=== PATIENT | female | born 1995 | race Caucasian/White ===

== ENCOUNTER 2019-11-19 11:43 | Emergency (ER) | payer SELFPAY ==
[~2019-11-19] VITALS: Ht 165.1 cm; Wt 86.2 kg
[~2019-11-19 11:43] MED LIST: PHENERGAN; PRENATAL ONE T1 EACH PO
--- OUTSIDE RECORDS SUMMARY | 2019-11-19 11:46 | XMS REPORT | Clinical Summary ---
Author Author [facility] Organization [facility] Address Unknown Phone Unavailable Care Team Providers Care Jailer Name Role Phone Asked, No Pcp PCP Unavailable Allergies Comments Active Allergy Reactions Severity Noted Date Diphenhydramine Hcl Unknown 05/22/2019 Reaction unknown Cephalexin Other (See 03/18/2017 Comments) Hydrocodone-Acetaminophen Itching Medium 02/2018 Medications End Date Status Medication Sig Dispensed Refills Start Date Active traMADol-acetaminophen Take 1 tablet 0 (ULTRACET) 37.5-325 mg by mouth per tabletIndications: every 6 (six) acute pain hours as needed for moderate pain .Acute Pain. Active ibuprofen (ADVIL) 600 MG Take 600 mg 0 tablet by mouth every 6 (six) hours as needed for mild pain. Active naproxen-esomeprazole Take 1 60 tablet 2 04/28 (VIMOVO) 500-20 mg capsule by 9 tablet,IR & delay mouth 2 (two) rel,biphasic times a day. Active Problems Not on file Encounters Care Team Description Date Type Specialty Duarte Beatty MD Acute pain of left knee (Primary Dx); Complex tear of lateral meniscus of left knee as current injury, initial encounter; Sprain of medial collateral ligament of left knee, initial encounter 05/22/2019 Office Visit Orthopedic Surgery Franklin Small DO Nonintractable headache, unspecified chr onicity pattern, unspecified headache type (Primary Dx) 05/04/2019 Emergency Emergency Medicine Kehinde Gregg MD Rectal bleeding (Primary Dx) 03/05/2019 Emergency Emergency Medicine after 11/18/2018 Social History Date Tobacco Use Types Packs/Day Years Used Light Tobacco Smoker Cigarettes 0.25 1 Smokeless Tobacco: Never Used Drinks/Week oz/Week Comments Alcohol Use No Sex Assigned at Date Recorded Not on file Industry Job Start Date Occupation Not on file Not on file Not on file Travel End Travel History Travel Start No recent travel history available. Last Filed Vital Signs Reading Time Taken Comments Vital Sign 124/78 05/04/2019 5:35 PM [employer] Blood Pressure 90 05/04/2019 5:35 PM [employer]CH[employer] Pulse 36.3 C (97.3 F) 05/04/2019 5:35 PM [employer]OT[employer]INE [employer]CH[employer] Temperature 22 05/04/2019 5:35 PM [employer]INE [employer]CH[employer] Respiratory Rate 98% 05/04/2019 5:35 PM [employer]OTING [employer]ACHINE [employer]CH[employer] Oxygen Saturation - - Inhaled Oxygen Concentration 86.2 kg (190 lb) 05/22/2019 9:24 AM [employer]OTING MACHINE [employer]CH[employer] Weight 165.1 cm (5' 5") 05/22/2019 9:24 AM [employer]OTING MACHINE MECHAN[employer] Height 31.62 05/22/2019 9:24 AM [employer]OT[employer]CH[employer] Body Mass Index Plan of Treatment Health Maintenance Due Date Last Done Comments CERVICAL CANCER SCREENING 2014 INFLUENZA VACCINE 01/26/2020 Procedures Comments Procedure Name Priority Date/Time Associated Diag nosis XR KNEE 4+ VW LEFT Routine 05/22/2019 Acute pain of left knee 9:29 [address] [address] [address] [address] CERVICAL SPINE WO STAT 05/04/2019 CONTRAST 8:40 [address] [employer] [address] HEAD WO CONTRAST STAT 05/04/2019 8:40 PM [employer]OTING MACHINE MECH[employer]IC ESTIMATED GFR STAT 05/04/2019 7:50 PM [employer]OTING MACHINE [employer]CH[employer]IC HCG QUANTITATIVE, SERUM STAT 05/04/2019 7:50 PM [employer]OTING [employer]ACHINE MECH[employer]IC COMPREHENSIVE METABOLIC STAT 05/04/2019 PANEL 7:50 PM [employer]OTING MACHINE MECH[employer]IC PARTIAL THROMBOPLASTIN STAT 05/04/2019 TIME (PTT) 7:50 PM [employer]OTING MACHINE MECHANIC PROTHROMBIN TIME WITH INR STAT 05/04/2019 7:50 PM VOTING MACHINE MECHANIC HC COMPLETE BLD COUNT STAT 05/04/2019 W/AUTO DIFF 7:50 PM VOTING MACHINE MECHANIC ED REFERRAL TO [facility] Routine 03/05/2019 [facility] PHYSICIAN 10:53 PM CDT ORGANIZATION PARATHYROID HORMONE STAT 03/05/2019 10:11 PM CDT ESTIMATED GFR STAT 03/05/2019 10:11 PM CDT COMPREHENSIVE METABOLIC STAT 03/05/2019 PANEL 10:11 PM CDT MAGNESIUM LEVEL STAT 03/05/2019 10:11 PM CDT IONIZED CALCIUM STAT 03/05/2019 10:11 PM CDT ESTIMATED GFR Routine 03/05/2019 5:43 PM CDT COMPREHENSIVE METABOLIC Routine 03/05/2019 PANEL 5:43 PM CDT HC COMPLETE BLD COUNT Routine 03/05/2019 W/AUTO DIFF 5:43 PM CDT after 11/18/2018 Results * XR Knee 4+ Vw Left (05/22/2019 9:29 AM VOTING MACHINE MECHANIC) Specimen Narrative Performed At [facility] X-rays series in all 4 views shows sati sfactory preservation of the joint surface without significant arthritis. There does not appear to be any involvement of tracking and/or meniscus deterioration causing extensive degenerative changes. Sagittal views show a likewise preservation of joint surfaces aeration in the joint galloway rface height nor any osteophytic buildup posteriorly. Finally the merc hant view shows centering at less than 10 degrees axis without any hypert rophic buildup of the lateral facet region. Performing Organization Address City/State/[facility] Ph one Number [facility] [address] [place] [address] * CT Cervical Spine Wo Contrast (05/04/2019 8:40 PM VOTING MACHINE MECHANIC) Specimen Narrative Performed At EXAM: CT CERVICAL SPINE WO CONTRAST [facility] CLINICAL HISTORY: vertebral tenderness TECHNIQUE: Noncontrast enhanced imaging through the cervical spine was performed with coronal and sagittal reconstructed images. CT scans are performed using radiation dose reduction techniques (iterative reconstruction and/or automated exposur e control). Technical factors are evaluated and adjusted to ensure approp riate moderation of exposure. Automated dose management technology is applied to adjust radiation exposure while achieving a diagnostic quality image. COMPARISON: None FINDINGS: Straightening of cervical lordotic curv ature secondary to patient positioning. Cervical alignment and vertebral body h eight are within normal limits. There is no evidence of acute fracture, suspicio us osteolytic lesion, or suspicious osteoblastic lesion. Evaluation of the disc levels is as fol lows: C2-C3: No significant thecal sac or for aminal stenosis. C3-C4: No significant thecal sac or for aminal stenosis. C4-C5: No significant thecal sac or for aminal stenosis. C5-C6: No significant thecal sac or for aminal stenosis. C6-C7: No significant thecal sac or for aminal stenosis. C7-T1: No significant thecal sac or for aminal stenosis. Visualized paraspinal soft tissues are unremarkable. No incidental thyroid nodules are noted . Visualized lung apices are without evid ence of acute focal pneumonia or concerning nodule. IMPRESSION: 1.No acute osseous abnormality of the c ervical spine. [facility]-[id number] Procedure Note Hm Interface, Radiology Results Incoming - 05/04/2019 8:49 PM VOTING MACHINE MECHANIC EXAM: CT CERVICAL SPINE WO CONTRAST CLINICAL HISTORY: vertebral tenderness TECHNIQUE: Noncontrast enhanced imaging through the cervical spine was performed with coronal and sagittal reconstructed images. CT scans are performed using radiation dose reduction techniques (iterative reconstruction and/or automated exposure control). Technical factors are evaluated and adjusted to ensure appropriate moderation of exposure. Automated dose management technology is applied to adjust radiation exposure while achieving a diagnostic quality image. COMPARISON: None FINDINGS: Straightening of cervical lordotic curvature secondary to patient positioning. Cervical alignment and vertebral body height are within normal limits. There is no evidence of acute fracture, suspicious osteolytic lesion, or suspicious osteoblastic lesion. Evaluation of the disc levels is as follows: C2-C3: No significant thecal sac or foraminal stenosis. C3-C4: No significant thecal sac or foraminal stenosis. C4-C5: No significant thecal sac or foraminal stenosis. C5-C6: No significant thecal sac or foraminal stenosis. C6-C7: No significant thecal sac or foraminal stenosis. C7-T1: No significant thecal sac or foraminal stenosis. Visualized paraspinal soft tissues are unremarkable. No incidental thyroid nodules are noted. Visualized lung apices are without evidence of acute focal pneumonia or concerning nodule. IMPRESSION: 1.No acute osseous abnormality of the ce rvical spine. [facility]-[id number] Performing Organization Address City/State/Zipcode Ph one Number [facility] [address] [place] [address] * CT Head Wo Contrast (05/04/2019 8:40 PM VOTING MACHINE MECHANIC) Specimen Narrative Performed At EXAMINATION: CT HEAD WO CONTRAST [facility] CLINICAL HISTORY: occipital headache COMPARISON: CT head 07/28/2015. TECHNIQUE: Noncontrast head CT performe d using radiation dose reduction techniques. Technical factors are andrzej luated and adjusted to ensure appropriate moderation of exposure. Automated dos e management technology is applied to adjust radiation exposure while achieving a diagnostic quality im age. FINDINGS: No significant interval change appearin g since the prior CT from 2015. No acute intra or extra-axial hemorrhage identif ied. The laguna-white matter differentiation is preserved. The basal ganglia, thalami, midbrain, varun and cervicomedullary junction are unremarkable. No mass, mass effect, or midline shift is seen. Ventricles and sulci are normal in appearance for mar ent's age. Basal cisterns are patent. Calvarium is intact. The orbital contents are symmetric and normal in appearance. The visualized paranasal sinuses are unremarkable. The mastoid air cells and middle ear cavities are clear. Scalp soft tissues are unremarkable. IMPRESSION: No acute intracranial abnormality ident ified. [facility]-[id number] Procedure Note Interface, Radiology Results Incoming - 05/04/2019 8:49 PM VOTING MACHINE MECHANIC EXAMINATION: CT HEAD WO CONTRAST CLINICAL HISTORY: occipital headache COMPARISON: CT head 07/28/2015. TECHNIQUE: Noncontrast head CT performed using radiation dose reduction techniques. Technical factors are evaluated and adjusted to ensure appropriate moderation of exposure. Automated dose management technology is applied to adjust radiation exposure while achieving a diagnostic quality image. FINDINGS: No significant interval change appearing since the prior CT from 2015. No acute intra or extra-axial hemorrhage identified. The laguna-white matter differentiation is preserved. The basal ganglia, thalami, midbrain, varun and cervicomedullary junction are unremarkable. No mass, mass effect, or midline shift is seen. Ventricles and sulci are normal in appearance for patient's age. Basal cisterns are patent. Calvarium is intact. The orbital contents are symmetric and normal in appearance. The visualized paranasal sinuses are unremarkable. The mastoid air cells and middle ear cavities are clear. Scalp soft tissues are unremarkable. IMPRESSION: No acute intracranial abnormality identified. [facility]-[id number] Performing Organization Address City/State/Zipcode Ph one Number [facility] [address] [place] [address] * Estimated GFR (05/04/2019 7:50 PM VOTING MACHINE MECHANIC) Only the most recent of 3 results within the time period is included. Pathologist [facility] Estimated GFR >=90 mL/min/1.73 m2 [facility] Comment: YARSANI Catergory Units [facility]OSPITAL G1 >=90 Normal or high G2 60-89 Mildly decreased G3a 45-59 Mildly to moderately decreased G3b 30-44 Moderately to severely decreased G4 15-29 Severely decreased G5 <15 Kidney failure The eGFR was calculated using the Chronic Kidney Disease Epidemiology Collaboration (CKD-EPI) equation. Interpretation is based on recommendations of the National Kidney Foundation-Kidney Disease Outcomes Quality Initiative (NKF-KDOQI) published in 2014. Specimen Plasma specimen Performing Organization Address City/[facility] Ph one Number [facility] [place] [address] [place] [address] PATHOLOGY AND GENOMIC MEDICINE [address] * Partial thromboplastin time, activated (05/04/2019 7:50 PM VOTING MACHINE MECHANIC) Pathologist [facility] PTT 28.7 23.0 - 36.0 sec [facility] Comment: [facility] PTT therapeutic range for [place] unfractionated heparin is HOSPITAL 61.0-112.0 seconds which corresponds to Anti-Xa 0.3-0.7 U/ml. Specimen Blood Performing Organization Address [facility] Ph one Number [facility] [place] DE[place] OF [address] [place] [address] PATHOLOGY AND [facility] [address] [place] [address] * Prothrombin time with INR (05/04/2019 7:50 PM VOTING MACHINE MECHANIC) Pathologist [facility] Prothrombin 12.4 11.5 - 14.5 sec [facility] time [facility] INR 0.95 [facility] Comment: YARSANI For patients on anticoagulant [place] therapy, reference ranges HOSPITAL below: Indication: INR Value Treatment of Venous Thrombosis, 2.0-3.0 pulmonary emboli, or prophylaxis of a venous thrombosis, or systemic emboli. High dose, high risk patients 3.0-4.5 with mechanical valves. NOTE: INR values over 3.0 are sometimes associated with gastrointestinal hemorrhage, especially values over 4.0. Specimen Blood Performing Organization Address City/[facility] one Number [facility] [place] OF [address] [place] [id number] PATHOLOGY AND GENOMIC MEDICINE [facility] [address] * CBC with platelet and differential (05/04/2019 7:50 PM VOTING MACHINE MECHANIC) Only the most recent of 2 results within the time period is included. WBC 8.7 4.2 - 11.0 k/uL [facility] RBC 4.73 4.04 - 5.86 m/uL [facility] HGB 13.4 11.5 - 15.3 g/dL [facility] HCT 40.8 34.0 - 45.0 % [facility] MCV 86.3 80.0 - 98.0 fL [facility] MCH 28.3 27.0 - 34.0 pg [facility] MCHC 32.8 31.5 - 36.5 g/dL [facility] RDW - SD 39.1 37.0 - 51.0 fL [facility] MPV 9.8 7.4 - 10.4 fL [facility] Platelet count 392 150 - 400 k/uL [facility] Nucleated RBC 0.00 /100 WBC [facility] Neutrophils 60.7 36.0 - 66.0 % [facility] Lymphocytes 31.4 24.0 - 44.0 % [facility] Monocytes 6.5 (H) 0.0 - 6.0 % [facility] Eosinophils 0.9 0.0 - 6.0 % [facility] Basophils 0.3 0.0 - 1.2 % [facility] Immature 0.2 0.0 - 1.0 % [facility] granulocytes [facility] Specimen Blood Performing Organization Address City/State/Zipcode Ph one Number [facility] [place] DE[place] OF [address] [place] [phone] PATHOLOGY AND GENOMIC MEDICINE [facility] [address] * hCG quantitative, serum (05/04/2019 7:50 PM VOTING MACHINE MECHANIC) Pathologist [facility] hCG <1 0 - 5 mIU/mL [facility] quantitative, Comment: YARSANI serum EXPECTED RANGE: [place] >25 mIU/mL seen in . HOSPITAL For values 1-24: Indeterminate result. Recommend retesting in 72 hours. HCG doubling time for normal is about 2.5 days. Approx Gestational Age Approx. HCG Conc. (mIU/mL) 0-2 weeks 0-500 2-3 weeks 100-1000 3-4 weeks 500-6000 1-3 months 5000-200,000 2nd Trimester 5000-50,000 3rd Trimester 5000-50,000 Specimen Blood Performing Organization Address City/State/[facility] Ph one Number [facility] [place] DE[place] OF [address] [place] [address] PATHOLOGY AND GENOMIC MEDICINE [facility] [address] * Comprehensive metabolic panel (05/04/2019 7:50 PM VOTING MACHINE MECHANIC) Only the most recent of 3 results within the time period is included. Pathologist [facility] Sodium 140 135 - 150 mEq/L [facility] Potassium 4.3 3.5 - 5.0 mEq/L [facility] Chloride 100 98 - 112 mEq/L [facility] CO2 27 24 - 31 mmol/L [facility] Anion gap 13@ANIO 7 - 15 mEq/L [facility] BUN 10 7 - 18 mg/dL [facility] Creatinine 0.70 0.50 - 0.90 mg/dL [facility] Glucose 83 65 - 100 mg/dL [facility] Calcium 9.5 8.3 - 10.2 mg/dL [facility] Protein 7.8 6.3 - 8.3 g/dL [facility] Albumin 4.0 3.5 - 5.0 g/dL [facility] A/G ratio 1.1 0.7 - 3.8 [facility] Alkaline 56 0 - 104 U/L [facility] phosphatase [facility] AST 19 10 - 35 U/L [facility] ALT 5 5 - 50 U/L [facility] Total bilirubin 0.3 0.2 - 1.2 mg/dL [facility] Specimen Plasma specimen Performing Organization Address City/State/Zipcode Ph one Number [facility] [place] DE[place] OF [address] [place] [address] PATHOLOGY AND GENOMIC MEDICINE [facility] [address] [place] [address] HOSPITAL * Parathyroid hormone (03/05/2019 10:11 PM CDT) PTH 36 15 - 65 pg/mL [facility] Specimen Performing Organization Address City/State/[facility] Ph one Number [facility] DEPARTMENT OF [address] [place] [address] PATHOLOGY AND GENOMIC MEDICINE [address] * Magnesium level (03/05/2019 10:11 PM CDT) Magnesium 2.00 1.60 - 2.60 mg/dL [facility] Specimen Plasma specimen Performing Organization Address City/State/[facility] Ph one Number [facility] [place] OF [address] [place] [address] PATHOLOGY AND GENOMIC MEDICINE [facility] [address] [address] * Ionized calcium (03/05/2019 10:11 PM CDT) pH 7.37 [facility] Ionized calcium 1.12 1.11 - 1.32 mmol/L [facility] Specimen Plasma specimen Performing Organization Address City/State/Zipcode Ph one Number [facility] [place] OF [address] 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 Explanation Type Date Recorded Advance Directives, 03/06/2019 2:45 PM Living Will and Medical Power of Media Consultant Outside Sales Advance Directives, 03/18/2017 4:53 PM Living Will and Medical Power of Media Consultant Outside Sales Advance Directives, 04/20/2017 11:45 PM Living Will and Medical Power of Media Consultant Outside Sales Advance Directives, 01/02/2018 5:13 PM Living Will and Medical Power of Media Consultant Outside Sales Advance Directives, 01/02/2018 5:14 PM Living Will and Medical Power of Media Consultant Outside Sales Advance Directives, 05/04/2019 7:44 PM Living Will and Medical Power of Media Consultant Outside Sales
--- OUTSIDE RECORDS SUMMARY | 2019-11-19 11:46 | XMS REPORT ---
Author Author [facility] t Organization [facility] Address [address] [place] [address] Phone Unavailable Care Team Providers Care Pipe Processor Name Role Phone Asked, Pcp No PCP Unavailable Angel Beatty MD Attphys Allen Small DO Attphys Cristino BOWENS, Maulik Busby Attphys Payers Payer Name Policy Type Policy Number Effective Date Expiration Date Kalli chase [facility] CHOICE/CHOICE +/06/2018-PresentHMO/ PPO xxxxxxxxx 2018 00:00:00 Sadi Rodriguezist Problems This patient has no known problems. Allergies, Adverse Reactions, Alerts Allergy Name Allergy Type Status Severity Reaction(s) Onset Date Inacti ve Date Treating Clinician Comments Source hydrocodone DA Active MD 2019-07-24 00:00:00 [facility] cephalexin DA Active U 2019-07-24 00:00:00 [facility] metoclopramide DA Active MD 2019-07-24 00:00:00 [facility] egg FA Active MO 2019-07-24 00:00:00 [facility] metoclopramide DA Active MD 2019-06-23 00:00:00 [facility] Diphenhydramine Hcl Propensity to adverse reactions to drug Active Unknown Reaction 2019-05-22 00:00:00 Sadi Marc Hydrocodone-Acetaminophen Propensity to adverse reactions to drug A ctive Itching 2018-01-02 00:00:00 Sadi Marc Cephalexin Propensity to adverse reactions to drug Active Other (See Comments) 2017-03-18 00:00:00 unknown Sadi Marc hydrocodone DA Active MD 2016-10-19 00:00:00 [facility] cephalexin DA Active U 2016-10-19 00:00:00 [facility] egg FA Active U 2016-10-19 00:00:00 [facility] Social History Social Habit Start Date Stop Date Quantity Comments Source History of tobacco use Cigarette Smoker Sadi Marc Sex Assigned At [facility] Cigarettes smoked current (pack per day) - Reported 00:00:00 2019-05-22 00:00:00 Sadi Marc Cigarette pack-years 2019-05-22 00:00:00 2019-05-22 00:00:00 Sadi Marc Alcohol intake 2019-05-22 00:00:00 2019-05-22 00:00:00 Current non-drinker of alcohol (finding) Sadi Marc Smoking Status Start Date Stop Date Source Light tobacco smoker 2019-05-22 00:00:00 Sadi Marc Medications Ordered Medication Name Filled Medication Name Start Date Stop Da te Current Medication? Ordering Clinician Indication Dosage Frequency Signature (SIG) Comments Components Source ibuprofen (ADVIL) 600 MG tablet 2019-05-22 09:31:51 Yes 600mg Q6H Take 600 mg by mouth every 6 (six) hours as needed for mild pain. Sadi Marc traMADol-acetaminophen (ULTRACET) 37.5-325 mg per tablet 2019-05-22 09:31:09 Yes acute pain 1{tbl} Q6H Take 1 tablet by mouth every 6 (six) hours as needed for moderate pain .Acute Pain. Sadi Vigil ethodist naproxen-esomeprazole (VIMOVO) 500-20 mg tablet,IR & delay r el,biphasic 2019-05-22 00:00:00 Yes 1{capsule} Q.5D Take 1 capsule by mouth 2 (two) times a day. Sadi Marc Vital Signs Vital Name Observation Time Observation Value Comments Source Body height 2019-05-22 09:24:00 165.1 cm Sadi Marc Body weight 2019-05-22 09:24:00 86.183 kg Sadi Marc BMI 2019-05-22 09:24:00 31.62 kg/m2 Sadi Marc Systolic blood pressure 2019-05-04 17:35:09 124 mm[Hg] Sadi Marc Diastolic blood pressure 2019-05-04 17:35:09 78 mm[Hg] Sadi Marc Heart rate 2019-05-04 17:35:09 90 /min Sadi Marc Body temperature 2019-05-04 17:35:09 36.28 Nusrat Grace Marc Respiratory rate 2019-05-04 17:35:09 22 /min Grace Marc Oxygen saturation in Arterial blood by Pulse oximetry 2018-06 17:35:09 98 /min Sadi Marc Procedures Procedure Date / Time Performed Performing Clinician Sourc e XR KNEE 4+ VW LEFT 2019-05-22 09:29:[address] CERVICAL SPINE WO CONTRAST 2019-05-04 20:40:[address] HEAD WO CONTRAST 2019-05-04 20:40:31 Sujatha Palma HC COMPLETE BLD COUNT W/AUTO DIFF 2019-05-04 19:50:00 Brandon Palma PROTHROMBIN TIME WITH INR 2019-05-04 19:50:00 Sujatha Palma PARTIAL THROMBOPLASTIN TIME (PTT) 2019-05-04 19:50:00 Brandon Palma COMPREHENSIVE METABOLIC PANEL 2019-05-04 19:50:00 Sujatha Palma HCG QUANTITATIVE, SERUM 2019-05-04 19:50:00 Sujatha Palma ESTIMATED GFR 2019-05-04 19:50:00 Sujatha Palma ED REFERRAL TO [facility] 2018 22:53:03 Kehinde Gregg IONIZED CALCIUM 2019-03-05 22:11:00 Kehinde Gregg MAGNESIUM LEVEL 2019-03-05 22:11:00 Kehinde Gregg COMPREHENSIVE METABOLIC PANEL 2019-03-05 22:11:00 Kehinde Gregg ESTIMATED GFR 2019-03-05 22:11:00 Kehinde Gregg PARATHYROID HORMONE 2019-03-05 22:11:00 Kehinde Gregg HC COMPLETE BLD COUNT W/AUTO DIFF 2019-03-05 17:43:00 Sahil Gregg COMPREHENSIVE METABOLIC PANEL 2019-03-05 17:43:00 Kehinde Gregg ESTIMATED GFR 2019-03-05 17:43:00 SunilRob saini Sadi Meth odravindra Plan of Care Planned Activity Planned Date Details Comments Source Future Scheduled Test 2020-01-26 00:00:00 INFLUENZA VACCINE [code = INFLUENZA VACCINE] Sadi Marc Future Scheduled Test 2014 00:00:00 Screening for winnie gnant neoplasm of cervix (procedure) [code = 207601445] Sadi Oconnell t Results Test Description Test Time Test Comments Results Result Comments Source UA RFLX MICR CULT IF INDICATED 2019-07-24 22:00:00 Test Item UA COLOR (test code = COLU) YELLOW YELLOW UA APPEARANCE (test code = APPU) Slightly-Cloudy CLEAR UA GLUCOSE DIPSTICK (test code = DGLUU) NEGATIVE NEG UA BILIRUBIN DIPSTICK (test code = BILU) NEGATIVE NEG UA KETONE DIPSTICK (test code = KETU) NEGATIVE NEG UA SPECIFIC GRAVITY (test code = SGU) 1.020 1.001-1.035 N UA BLOOD DIPSTICK (test code = LAZARO) NEG NEG UA PH DIPSTICK (test code = ROXANA) 6.0 5-9 UA PROTEIN DIPSTICK (test code = PROU) NEGATIVE NEG UA UROBILINIOGEN DIPSTICK (test code = URO) 4.0 mg/dL NEG A UA NITRITE DIPSTICK (test code = CHAVO) NEG NEG UA LEUKOCYTE ESTERASE DIPSTICK (test code = LEUU) TRACE NEG A UA WBC (test code = WBCU) 6-10 #/hpf NONE SEEN A UA RBC (test code = RBCU) 0-2 #/hpf NONE SEEN UA EPITHELIAL CELLS (test code = EPIU) FEW #/HPF RARE-FEW UA BACTERIA (test code = BACU) RARE /HPF RARE-FEW UA MUCUS (test code = MUCU) 1+ NONE SEEN Indication for culture: Flank PainUR HCG [id number] 22:00:00* Test Item Value Reference Range Interpretation Comments UR HCG QUAL (test code = HCGQLU) NEGATIVE 1. Very dilute urine specimens, as indicated by a lowspecific gravity, may not contain indirect sales representative levels ofhCG. 2. False negative results may occur when the levels of hCGare below the sensitivity level of the test. If is still suspected, a first morningurine specimen should be collected 48 hours later andtested. Indication for culture: Flank PainUA RFLX MICR CULT IF [id number] 21:59:00* Test Item Value Reference Range Interpretation Comments UA COLOR (test code = COLU) YELLOW UA APPEARANCE (test code = APPU) CLEAR UA GLUCOSE DIPSTICK (test code = DGLUU) NEGATIVE UA BILIRUBIN DIPSTICK (test code = BILU) NEGATIVE UA KETONE DIPSTICK (test code = KETU) NEGATIVE UA SPECIFIC GRAVITY (test code = SGU) 1.001-1.035 UA BLOOD DIPSTICK (test code = LAZARO) NEGATIVE UA PH DIPSTICK (test code = ROXANA) 5-9 UA PROTEIN DIPSTICK (test code = PROU) NEGATIVE UA UROBILINIOGEN DIPSTICK (test code = URO) mg/dL NEG UA NITRITE DIPSTICK (test code = CHAVO) NEGATIVE UA LEUKOCYTE ESTERASE DIPSTICK (test code = LEUU) NEG UA WBC (test code = WBCU) #/hpf NONE SEEN UA EPITHELIAL CELLS (test code = EPIU) #/HPF RARE-FEW Indication for culture: Flank PainUR HCG [id number] 21:59:00* Test Item Value Reference Range Interpretation Comments UR HCG QUAL (test code = HCGQLU) NEGATIVE 1. Very dilute urine specimens, as indicated by a lowspecific gravity, may not contain indirect sales representative levels ofhCG. 2. False negative results may occur when the levels of hCGare below the sensitivity level of the test. If is still suspected, a first morningurine specimen should be collected 48 hours later andtested. Indication for culture: Flank PainDRUGS OF ABUSE [id number] 09:03:00* Test Item Value Reference Range Interpretation Comments UR COCAINE (test code = COCAU) NEGATIVE NEGATIVE DETECTION CUT OFF: 150 ng/mL UR CANNABINOIDS (test code = CANU) NEGATIVE NEGATIVE DETECTION CUT OFF: 50 ng/mL UR AMPHETAMINE (test code = AMPHU) NEGATIVE NEGATIVE DETECTION CUT OFF: 500 ng/mL UR BARBITURATE QUAL (test code = BARBQLU) NEGATIVE NEGATIVE DETECTION CUT OFF: 200 ng/mL UR BENZODIAZEPINE (test code = BENZU) NEGATIVE NEGATIVE DETECTION CUT OFF: 150 ng/mL UR OPIATES QUAL (test code = OPIAQLU) NEGATIVE NEGATIVE DETECTION CUT OFF: 100 ng/mL UR PHENCYCLIDINE (PCP) (test code = PHENCU) NEGATIVE NEGATIVE DETECTION CUT OFF: 25 ng/mL UA RFLX MICR CULT IF [id number] 08:46:00* Test Item Value Reference Range Interpretation Comments UA COLOR (test code = COLU) YELLOW YELLOW UA APPEARANCE (test code = APPU) Slightly-Cloudy CLEAR UA GLUCOSE DIPSTICK (test code = DGLUU) NEGATIVE NEG UA BILIRUBIN DIPSTICK (test code = BILU) NEGATIVE NEG UA KETONE DIPSTICK (test code = KETU) NEGATIVE NEG UA SPECIFIC GRAVITY (test code = SGU) 1.019 1.001-1.035 N UA BLOOD DIPSTICK (test code = LAZARO) NEG NEG UA PH DIPSTICK (test code = ROXANA) 6.0 5-9 UA PROTEIN DIPSTICK (test code = PROU) NEGATIVE NEG UA UROBILINIOGEN DIPSTICK (test code = URO) 2.0 mg/dL NEG UA NITRITE DIPSTICK (test code = CHAVO) NEG NEG UA LEUKOCYTE ESTERASE DIPSTICK (test code = LEUU) 2+ NEG A UA WBC (test code = WBCU) 3-5 #/hpf NONE SEEN A UA RBC (test code = RBCU) 3-5 #/hpf NONE SEEN A UA EPITHELIAL CELLS (test code = EPIU) MODERATE #/HPF RARE-FEW A UA BACTERIA (test code = BACU) RARE /HPF RARE-FEW UA MUCUS (test code = MUCU) 2+ NONE SEEN Indication for culture: Suprapubic PainUR HCG [id number] 08:46:00* Test Item Value Reference Range Interpretation Comments UR HCG QUAL (test code = HCGQLU) NEGATIVE 1. Very dilute urine specimens, as indicated by a lowspecific gravity, may not contain indirect sales representative levels ofhCG. 2. False negative results may occur when the levels of hCGare below the sensitivity level of the test. If is still suspected, a first morningurine specimen should be collected 48 hours later andtested. Indication for culture: Suprapubic PainUA RFLX MICR CULT IF INDICATED 2019-06-23 08:43:00* Test Item Value Reference Range Interpretation Comments UA COLOR (test code = COLU) YELLOW UA APPEARANCE (test code = APPU) CLEAR UA GLUCOSE DIPSTICK (test code = DGLUU) NEGATIVE UA BILIRUBIN DIPSTICK (test code = BILU) NEGATIVE UA KETONE DIPSTICK (test code = KETU) NEGATIVE UA SPECIFIC GRAVITY (test code = SGU) 1.001-1.035 UA BLOOD DIPSTICK (test code = LAZARO) NEGATIVE UA PH DIPSTICK (test code = ROXANA) 5-9 UA PROTEIN DIPSTICK (test code = PROU) NEGATIVE UA UROBILINIOGEN DIPSTICK (test code = URO) mg/dL NEG UA NITRITE DIPSTICK (test code = CHAVO) NEGATIVE UA LEUKOCYTE ESTERASE DIPSTICK (test code = LEUU) NEG UA WBC (test code = WBCU) #/hpf NONE SEEN UA EPITHELIAL CELLS (test code = EPIU) #/HPF RARE-FEW Indication for culture: Suprapubic PainUR HCG [id number] 08:43:00* Test Item Value Reference Range Interpretation Comments UR HCG QUAL (test code = HCGQLU) NEGATIVE 1. Very dilute urine specimens, as indicated by a lowspecific gravity, may not contain indirect sales representative levels ofhCG. 2. False negative results may occur when the levels of hCGare below the sensitivity level of the test. If is still suspected, a first morningurine specimen should be collected 48 hours later andtested. Indication for culture: Suprapubic PainCT Cervical Spine Wo Contrast 2019-05-04 20:46:32Hm Interface, Radiology Results 05/04/2019 8:49 PM CSTEXAM: CT CERVICAL SPINE WO CONTRASTCLINICAL HISTORY: vertebral tendernessTECHNIQUE: Noncontrast enhanced imaging through the cervical spine was performed with coronal and sagittal reconstructed images.CT scans are performed using radiation dose reduction techniques (iterative reconstruction and/or automated exposure control). Technical factors are evaluated and adjusted to ensure appropriate moderation of exposure. Automated dose management technology is applied to adjust radiation exposure while achieving a diagnostic quality image.COMPARISON: NoneFINDINGS:Straightening of cervical lordotic curvature secondary to patient positioning.Cervical alignment and vertebral body height are within normal limits. There is no evidence of acute fracture, suspicious osteolytic lesion, or suspicious osteoblastic lesion. Evaluation of the disc levels is as follows: C2-C3: No significant thecal sac or foraminal stenosis.C3- C4: No significant thecal sac or foraminal stenosis.C4-C5: No significant thecal sac or foraminal stenosis.C5-C6: No significant thecal sac or foraminal stenosis.C6-C7: No significant thecal sac or foraminal stenosis.C7-T1: No significant thecal sac or foraminal stenosis.Visualized paraspinal soft tissues are unremarkable.No incidental thyroid nodules are noted.Visualized lung apices are without evidence of acute focal pneumonia or concerning nodule.IMPRESSION: 1.No acute osseous abnormality of the cervical spine.[facility]-[id number] MethodistCT Head Wo [id number] 20:46:06Hm Interface, Radiology Results - 05/04/2019 8:49 PM CSTEXAMINATION: CT HEAD WO CONTRASTCLINICAL HISTORY: occipital headacheCOMPARISON: CT head 07/28/2015.TECHNIQUE: Noncontrast head CT performed using radiation dose reduction techniques. Technical factors are evaluated and adjusted to ensure appropriate moderation of exposure. Automated dose management technology is applied to adjust radiation exposure while achieving a diagnostic quality image. FINDINGS:No significant interval change appearing since the prior CT from 2015. No acute intra or extra-axial hemorrhage identified. The laguna-white matter differentiation is preserved. The basal ganglia, thalami, midbrain, varun and cervicomedullary junction are unremarkable. No mass, mass effect, or midline shift is seen. Ventricles and sulci are normal in appearance for patient's age. Basal cisterns are patent. Calvarium is intact.The orbital contents are symmetric and normal in appearance. The visualized paranasal sinuses are unremarkable. The mastoid air cells and middle ear cavities are clear. Scalp soft tissues are unremarkable.IMPRESSION:No acute intracranial abnormality identified.[facility]-[id number] MethodisthCG quantitative, [id number] 20:34:40* Test Item Value Reference Range Interpretation Comments hCG quantitative, serum (test code = 07230-6) <1 0- 5 mIU /mL EXPECTED RANGE:>25 mIU/mL seen in .For values 1-24: Indeterminate result. Recommend retesting in 72 hours.HCG doubling time for normal is about 2.5 days.Approx Gestational Age Approx. HCG Conc. (mIU/mL) 0-2 weeks 0-500 2-3 weeks 100-1000 3-4 weeks 500-6000 1-3 months 5000-200,000 2nd Trimester 5000- 50,000 3rd Trimester 5000-50,000 [facility] MethodistProthrombin time with [id number] 20:32:09* Test Item Value Reference Range Interpretation Comments Prothrombin time (test code = 5902-2) 12.4 11.5- 14.5 sec INR (test code = 98909-1) 0.95 Fo r patients on anticoagulant therapy, reference ranges below:Indication: INR ValueTreatment of Venous Thrombosis, 2.0-3.0pulmonary emboli, or prophylaxisof a venous thrombosis, or systemic emboli.High dose, high risk patients 3.0-4.5with mechanical valves.NOTE: INR values over 3.0 are sometimes associated withgastrointestinal hemorrhage, especially values over 4.0. Sadi MethodistPartial thromboplastin time, [id number] 20:32:09* Test Item Value Reference Range Interpretation Comments PTT (test code = 3173-2) 28.7 23.0- 36.0 sec P TT therapeutic range for unfractionated heparin is61.0-112.0 seconds which corresponds to Anti-Xa0.3-0.7 U/ml. Sadi MethodistComprehensive metabolic [id number] 20:30:52* Test Item Value Reference Range Interpretation Comments Sodium (test code = 2951-2) 140 135- 150 mEq/L Potassium (test code = 2823-3) 4.3 3.5- 5.0 mEq/L Chloride (test code = 2075-0) 100 98- 112 mEq/L CO2 (test code = 2027-9) 27 mmol/L 24-31 Anion gap (test code = 82158-9) 13@ANIO 7- 15 mEq/L BUN (test code = 3094-0) 10 mg/dL 7-18 Creatinine (test code = 2160-0) 0.70 mg/dL 0.5-0.9 Glucose (test code = 2345-7) 83 mg/dL 65-100 Calcium (test code = 66469-6) 9.5 mg/dL 8.3-10.2 Protein (test code = 2885-2) 7.8 g/dL 6.3-8.3 Albumin (test code = 1751-7) 4.0 g/dL 3.5-5 A/G ratio (test code = 1759-0) 1.1 0.7-3.8 Alkaline phosphatase (test code = 6768-6) 56 U/L 0-104 AST (test code = 1920-8) 19 U/L 10-35 ALT (test code = 1742-6) 5 U/L 5-50 Total bilirubin (test code = 1974-2) 0.3 mg/dL 0.2-1.2 [facility] MethodistEstimated [id number] 20:30:52* Test Item Value Reference Range Interpretation Comments Estimated GFR (test code = 5488) >=90 mL/min/1.73 m2 Catergory Units InterpretationG1 >=90 Normal or highG2 60-89 Mildly qatgskqylW3b 45-59 Mildly to moderately bxrxqalprP8m 30-44 Moderately to severely decreasedG4 15-29 Severely decreasedG5 <15 Kidney failureThe eGFR was calculated using the Chronic Kidney Disease Epidemiology Collaboration (CKD-EPI) equation. Interpretation is based on recommendations of the National Kidney Foundation-Kidney Disease Outcomes Quality Initiative (NKF-KDOQI) published in 2014. [facility]SA[facility] with platelet and [id number] 20:16:51* Test Item Value Reference Range Interpretation Comments WBC (test code = 92787-4) 8.7 4.2- 11.0 k/uL RBC (test code = 52527-4) 4.73 m/uL 4.04-5.86 HGB (test code = 718-7) 13.4 g/dL 11.5-15.3 HCT (test code = 4544-3) 40.8 % 34-45 MCV (test code = 787-2) 86.3 fL 80-98 MCH (test code = 785-6) 28.3 pg 27-34 MCHC (test code = 786-4) 32.8 g/dL 31.5-36.5 RDW - SD (test code = 24345-3) 39.1 fL 37-51 MPV (test code = 91949-9) 9.8 fL 7.4-10.4 Platelet count (test code = 99023-1) 392 150- 400 k/uL Nucleated RBC (test code = 07289-6) 0.00 /100 WBC Neutrophils (test code = 86801-3) 60.7 % 36-66 Lymphocytes (test code = 13643-2) 31.4 % 24-44 Monocytes (test code = 07899-4) 6.5 % 0-6 H Eosinophils (test code = 44629-3) 0.9 % 0-6 Basophils (test code = 40361-3) 0.3 % 0-1.2 Immature granulocytes (test code = 60246-8) 0.2 % 0-1 Lab Interpretation (test code = 81318-0) Abnormal Sadi MarcParathyroid [id number] 08:27:52* Test Item Value Reference Range Interpretation Comments PTH (test code = 2731-8) 36 pg/mL 15-65 Sadi MethodistIonized [id number] 22:37:37* Test Item Value Reference Range Interpretation Comments pH (test code = 2753-2) 7.37 Ionized calcium (test code = 1994-0) 1.12 mmol/L 1.11-1.32 Sadi MarcMagnesium [id number] 22:27:57* Test Item Value Reference Range Interpretation Comments Magnesium (test code = 96616-3) 2.00 mg/dL 1.6-2.6 Sadi Marc
[2019-11-19] MEDS ORDERED: KETOROLAC TROMETHAMINE 60 MG/2 ML VIAL IM ONE (12:00)
[2019-11-19] MEDS ORDERED: KETOROLAC TROMETHAMINE 60 MG/2 ML VIAL ONE (12:05)
--- NOTE | 2019-11-19 12:20 | Emergency Department Note ---
History of Present Illnes History of Present Illness Chief Complaint: General Medicine Complaints History of Present Illness This is a 24 year old female arrived to the ED with complaints of neck pain for several days, worse with motion.. Historian: Patient Arrival Mode: Car Radiation: back Severity: mild Onset quality: gradual Timing of current episode: intermittent Progression: waxing and waning Past Medical/Family History Physician Review I have reviewed the patient's past medical and family history. Any updates have been documented here. Past Medical History Recent Fever: No Clinical Suspicion of Infectio: No New/Unexplained Change in Ment: No Past Medical History: None Other Medical History: HEPATITIS A Other Surgery: X 4 Other Last Tetanus: <5 YEARS Review of Systems Review of Systems Constitutional: no symptoms EENTM: no symptoms Cardiovascular: no symptoms Respiratory: no symptoms Gastrointestinal: no symptoms Genitourinary: no symptoms Musculoskeletal: muscle pain, muscle stiffness, neck pain Neurological: no symptoms Psychological: no symptoms Endocrine: no symptoms Hematological/Lymphatic: no symptoms Review of other systems All other systems reviewed and negative. Physical Exam Related Data Allergies: Coded Allergies: acetaminophen (Verified Allergy, Intermediate, ITCHING, 03/26/16) hydrocodone (Verified Allergy, Intermediate, ITCHING, 03/26/16) cephalexin (Verified Allergy, Mild, RASH, 03/26/16) Triage Vital Signs Vital Signs Date Time Temp Pulse Resp B/P (MAP) Pulse Ox O2 Delivery O2 Flow Rate FiO2 11/19/19 11:46 97.2 75 16 137/96 100 Physical Exam CONSTITUTIONAL Constitutional: well-developed, well-nourished HENT HENT: normocephalic, atraumatic, oropharynx clear/moist, nose normal HENT L/R: left ext ear normal, right ext ear normal EYES Eyes: PERRL, conjunctivae normal NECK Neck: ROM normal PULMONARY Pulmonary: effort normal, breath sounds normal CARDIOVASCULAR Cardiovascular: regular rhythm, heart sounds normal, capillary refill normal, normal rate GASTROINTESTINAL Abdominal: soft, nontender, bowel sounds normal GENITOURINARY Genitourinary: exam deferred SKIN Skin: warm, dry MUSCULOSKELETAL Musculoskeletal: ROM normal, tenderness (reproducible pain over trapezium, no skin break, no rash) NEUROLOGICAL Neurological: alert, oriented x 3, no gross motor or sensory deficits PSYCHOLOGICAL Psychological: mood/affect normal, judgement normal Critical Care Time Subsequent provider I assumed direction of critical care for this patient from another provider of my specialty. Assessment & Plan Assessment & Plan Final Impression: (1) Muscle spasm Assessment & Plan NSAIDs D/C Depart Disposition: HOME, SELF-CARE Last Vital Signs Date Time Temp Pulse Resp B/P (MAP) Pulse Ox O2 Delivery O2 Flow Rate FiO2 11/19/19 11:46 97.2 75 16 137/96 100 Home Meds Reported Medications Vit #108/Iron/Fa ( ONE TABLET) 1 Each Tablet, 1 TAB PO DAILY 03/26/16 PATSY NARVAEZ DO November 19, 2019 12:20
[2019-11-19] MEDS ORDERED: ROBAXIN-750750 MG PO (12:52)
== END 2019-11-19 13:03 | disposition home or self-care (01) ==
LOC: ER 11:43
DX: M54.2 Cervicalgia (principal); M62.830 Muscle spasm of back; B15.9 Hepatitis A without hepatic coma
CPT/HCPCS: 99282; J1885

== ENCOUNTER 2019-12-06 11:57 | Emergency (ER) | payer SELFPAY ==
[~2019-12-06] VITALS: Ht 165.1 cm; Wt 86.2 kg
[~2019-12-06 11:57] MED LIST changes: +ROBAXIN-750750 MG PO
--- OUTSIDE RECORDS SUMMARY | 2019-12-06 12:01 | XMS REPORT | Continuity of Care Document ---
Author Author [facility] t Organization [facility] Address [address] [place] [address] Phone Unavailable Care Team Providers Care Gullet Slitter Name Role Phone BROCK HARDY PCP Angel Beatty MD Attphys Allen Small DO Attphys Cristino BOWENS, Maulik Busby Attphys Payers Payer Name Policy Type Policy Number Effective Date Expiration Date Kalli chase [facility] CHO[facility]/CHOICE +/06/2018-PresentHMO/ PPO xxxxxxxxx 2018 00:00:00 [place] [facility] Problems Condition Name Condition Details Condition Category Status Onset Date Resolution Date Last Treatment Date Treating Clinician Comments Source Muscle spasm Problem Active [facility] Allergies, Adverse Reactions, Alerts Allergy Name Allergy Type Status Severity Reaction(s) Onset Date Inacti ve Date Treating Clinician Comments Source hydrocodone DA Active [place] 2019-07-24 00:00:00 [facility] cephalexin DA Active U 2019-07-24 00:00:00 [facility] metoclopramide DA Active [place] 2019-07-24 00:00:00 [facility] egg FA Active [place] 2019-07-24 00:00:00 [facility] metoclopramide DA Active [place] 2019-06-23 00:00:00 [facility] Diphenhydramine Hcl Propensity to adverse reactions to drug Active Unknown Reaction 2019-05-22 00:00:00 Sadi Marc Hydrocodone-Acetaminophen Propensity to adverse reactions to drug A ctive Itching 2018-01-02 00:00:00 Sadi Marc Cephalexin Propensity to adverse reactions to drug Active Other (See Comments) 2017-03-18 00:00:00 unknown Sadi Marc hydrocodone DA Active [place] 2016-10-19 00:00:00 [facility] cephalexin DA Active U 2016-10-19 00:00:00 [facility] egg FA Active U 2016-10-19 00:00:00 [facility] Hydrocodone Allergy to substance Active Moderate ITCHING 2016-03-26 00: 00:00 [facility] Acetaminophen Allergy to substance Active Moderate ITCH[place] 03-26 00:00:00 [facility] Cephalexin Allergy to substance Active Mild RASH 2016-03-26 00:00:00 [facility] Social History Social Habit Start Date Stop Date Quantity Comments Source History of tobacco use Cigarette Smoker Sadi Marc Sex Assigned At [facility] Cigarettes smoked current (pack per day) - [...] Dosage Frequency Signature (SIG) Comments Components Source Methocarbamol (Robaxin-750) 750 Mg TABLET Methocarbamo l (Robaxin-750) 750 Mg TABLET 2019-11-19 12:52:00 Yes 750 Ever y 8 Hours as needed for Muscle Spasms [facility] ibuprofen (ADVIL) 600 MG tablet 2019-05-22 09:31:51 [...] 2 (two) times a day. Sadi Marc Vit #108/Iron/Fa ( One Tablet) 1 Each TABLET Vit #108/Iron/Fa ( One Tablet) 1 Each TABLET Yes 1 Daily [facility] Phenergan Phenergan 2012-04-12 00:00:00 No [facility] Vital Signs Vital Name Observation Time Observation Value Comments Source Weight 2019-11-19 11:46:00 190 [lb_av] [facility] BMI (Body Mass Index) 2019-11-19 11:46:00 31.6 kg/m2 [facility] Body height 2019-05-22 09:24:00 165.1 cm Sadi [...] CT CERVICAL SPINE WO CONTRAST 2019-05-04 20:40:48 Go, Sujatha Marc CT HEAD WO CONTRAST 2019-05-04 20:40:31 Go, Sujatha Marc HC COMPLETE BLD COUNT W/AUTO DIFF 2019-05-04 19:50:00 Go, Brandon Marc PROTHROMBIN TIME WITH INR 2019-05-04 19:50:00 Sujatha Palma PARTIAL THROMBOPLASTIN TIME (PTT) 2019-05-04 19:50:00 Brandon Palma COMPREHENSIVE METABOLIC PANEL 2019-05-04 19:50:00 GoSujatha HCG QUANTITATIVE, SERUM 2019-05-04 19:50:00 Sujatha Palma ESTIMATED GFR 2019-05-04 19:50:00 Sujatha Palma ED REFERRAL TO SADI MARC PHYSICIAN ORGANIZATION 2018 22:53:03 Kehinde Gregg IONIZED CALCIUM 2019-03-05 22:11:00 Kehinde Gregg MAGNESIUM LEVEL 2019-03-05 22:11:00 Kehinde Gregg COMPREHENSIVE METABOLIC PANEL 2019-03-05 22:11:00 Kehinde Gregg ESTIMATED GFR 2019-03-05 22:11:00 Kehinde Gregg PARATHYROID HORMONE 2019-03-05 22:11:00 Kehnide Gregg HC COMPLETE BLD COUNT W/AUTO DIFF 2019-03-05 17:43:00 Sahil Gregg COMPREHENSIVE METABOLIC PANEL 2019-03-05 17:43:00 Kehinde Gregg ESTIMATED GFR 2019-03-05 17:43:00 Rob Barber Plan of Care Planned Activity Planned Date Details Comments Source Future Scheduled Test 2020-01-26 00:00:00 INFLUENZA VACCINE [code = INFLUENZA VACCINE] Sadi Marc Future Scheduled Test 2014 00:00:00 Screening for winnie gnant neoplasm of cervix (procedure) [code = 308186802] [facility] t Instructions Cervical Strain [facility] Encounters Start Date/Time End Date/Time Encounter Type Admission Type [facility] Facility Care Department Encounter ID Source 2019-11-19 11:43:00 2019-11-19 13:03:00 [address] Emergency Room [facility] [id number] [facility] Center Results Test Description Test Time Test Comments [...] SEEN Indication for culture: Flank PainUR HCG [id number] 22:00:00* Test Item Value Reference Range Interpretation Comments UR HCG QUAL (test code = HCGQLU) NEGATIVE 1. Very dilute urine specimens, as indicated by a lowspecific gravity, may not contain community representative levels ofhCG. 2. False negative results may occur when the levels of hCGare below the sensitivity level of the test. If is still suspected, a first morningurine specimen should be collected 48 hours later andtested. Indication for culture: Flank PainUA RFLX MICR CULT IF [id number] 21:59:00* Test Item Value Reference Range Interpretation [...] RARE-FEW Indication for culture: Flank PainUR HCG [id number] 21:59:00* Test Item Value Reference Range Interpretation Comments UR HCG QUAL (test code = HCGQLU) NEGATIVE 1. Very dilute urine specimens, as indicated by a lowspecific gravity, may not contain community representative levels ofhCG. 2. False negative results may occur when the levels of hCGare below the sensitivity level of the test. If is still suspected, a first morningurine specimen should be collected 48 hours later andtested. Indication for culture: Flank PainDRUGS OF ABUSE [id number] 09:03:00* Test Item Value Reference Range Interpretation [...] 25 ng/mL UA RFLX MICR CULT IF [id number] 08:46:00* Test Item Value Reference Range Interpretation [...] SEEN Indication for culture: Suprapubic PainUR HCG [id number] 08:46:00* Test Item Value Reference Range Interpretation Comments UR HCG QUAL (test code = HCGQLU) NEGATIVE 1. Very dilute urine specimens, as indicated by a lowspecific gravity, may not contain community representative levels ofhCG. 2. False negative results [...] RARE-FEW Indication for culture: Suprapubic PainUR HCG [id number] 08:43:00* Test Item Value Reference Range Interpretation Comments UR HCG QUAL (test code = HCGQLU) NEGATIVE 1. Very dilute urine specimens, as indicated by a lowspecific gravity, may not contain community representative levels ofhCG. 2. False negative results [...] 1.No acute osseous abnormality of the cervical spine.[facility]-[id number] MethodistCT Head Wo [id number] 20:46:06Hm Interface, Radiology Results - 05/04/2019 8:49 [...] soft tissues are unremarkable.IMPRESSION:No acute intracranial abnormality identified.[facility]-[id number] MethodisthCG quantitative, [id number] 20:34:40* Test Item Value Reference Range Interpretation Comments hCG quantitative, serum (test code = 46954-8) <1 0- 5 mIU /mL EXPECTED RANGE:>25 mIU/mL seen in .For values 1-24: Indeterminate result. Recommend retesting in 72 hours.HCG doubling time for normal is about 2.5 days.Approx Gestational Age Approx. HCG Conc. (mIU/mL) 0-2 weeks 0-500 2-3 weeks 100-1000 3-4 weeks 500-6000 1-3 months 5000-200,000 2nd Trimester 5000- 50,000 3rd Trimester 5000-50,000 Sadi RodriguezistProthrombin time with [id number] 20:32:09* Test Item Value Reference Range Interpretation Comments Prothrombin time (test code = 5902-2) 12.4 11.5- 14.5 sec INR (test code = 50867-1) 0.95 Fo r patients on anticoagulant therapy, reference ranges below:Indication: INR ValueTreatment of Venous Thrombosis, 2.0-3.0pulmonary emboli, or prophylaxisof a venous thrombosis, or systemic emboli.High dose, high risk patients 3.0-4.5with mechanical valves.NOTE: INR values over 3.0 are sometimes associated withgastrointestinal hemorrhage, especially values over 4.0. [facility] MethodistPartial thromboplastin time, [id number] 20:32:09* Test Item Value Reference Range Interpretation Comments PTT (test code = 3173-2) 28.7 23.0- 36.0 sec P TT therapeutic range for unfractionated heparin is61.0-112.0 seconds which corresponds to Anti-Xa0.3-0.7 U/ml. [facility] MethodistComprehensive metabolic [id number] 20:30:52* Test Item Value Reference Range Interpretation Comments Sodium (test code = 2951-2) 140 135- 150 mEq/L Potassium (test code = 2823-3) 4.3 3.5- 5.0 mEq/L Chloride (test code = 2075-0) 100 98- 112 mEq/L CO2 (test code = 2027-9) 27 mmol/L 24-31 Anion gap (test code = 21915-1) 13@ANIO 7- 15 mEq/L BUN (test code = 3094-0) 10 mg/dL 7-18 Creatinine (test code = 2160-0) 0.70 mg/dL 0.5-0.9 Glucose (test code = 2345-7) 83 mg/dL 65-100 Calcium (test code = 34790-8) 9.5 mg/dL 8.3-10.2 Protein (test code = 2885-2) 7.8 g/dL 6.3-8.3 Albumin (test code = 1751-7) 4.0 g/dL 3.5-5 A/G ratio (test code = 1759-0) 1.1 0.7-3.8 Alkaline phosphatase (test code = 6768-6) 56 U/L 0-104 AST (test code = 1920-8) 19 U/L 10-35 ALT (test code = 1742-6) 5 U/L 5-50 Total bilirubin (test code = 1974-2) 0.3 mg/dL 0.2-1.2 [facility] MethodistEstimated [id number] 20:30:52* Test Item Value Reference Range Interpretation Comments Estimated GFR (test code = 5488) >=90 mL/min/1.73 m2 Catergory Units InterpretationG1 >=90 Normal or highG2 60-89 Mildly tmamlurrxT5v 45-59 Mildly to moderately jhejffswnF2o 30-44 Moderately to severely decreasedG4 15-29 Severely decreasedG5 <15 Kidney failureThe eGFR was calculated using the Chronic Kidney Disease Epidemiology Collaboration (CKD-EPI) equation. Interpretation is based on recommendations of the National Kidney Foundation-Kidney Disease Outcomes Quality Initiative (NKF-KDOQI) published in 2014. [place] MethodistCBC with platelet and [id number] 20:16:51* Test Item Value Reference Range Interpretation Comments WBC (test code = 84731-1) 8.7 4.2- 11.0 k/uL RBC (test code = 92180-9) 4.73 m/uL 4.04-5.86 HGB (test code = 718-7) 13.4 g/dL 11.5-15.3 HCT (test code = 4544-3) 40.8 % 34-45 MCV (test code = 787-2) 86.3 fL 80-98 MCH (test code = 785-6) 28.3 pg 27-34 MCHC (test code = 786-4) 32.8 g/dL 31.5-36.5 RDW - SD (test code = 22777-5) 39.1 fL 37-51 MPV (test code = 51017-3) 9.8 fL 7.4-10.4 Platelet count (test code = 67177-7) 392 150- 400 k/uL Nucleated RBC (test code = 62751-8) 0.00 /100 WBC Neutrophils (test code = 79085-2) 60.7 % 36-66 Lymphocytes (test code = 13885-4) 31.4 % 24-44 Monocytes (test code = 63517-6) 6.5 % 0-6 H Eosinophils (test code = 05200-6) 0.9 % 0-6 Basophils (test code = 66257-8) 0.3 % 0-1.2 Immature granulocytes (test code = 67785-3) 0.2 % 0-1 Lab Interpretation (test code = 62111-3) Abnormal Sadi MarcParathyroid [id number] 08:27:52* Test Item Value Reference Range Interpretation Comments PTH (test code = 2731-8) 36 pg/mL 15-65 Sadi RodriguezistIonized [id number] 22:37:37* Test Item Value Reference Range Interpretation Comments pH (test code = 2753-2) 7.37 Ionized calcium (test code = 1994-0) 1.12 mmol/L 1.11-1.32 Sadi MarcMagnesium [id number] 22:27:57* Test Item Value Reference Range Interpretation Comments Magnesium (test code = 51289-1) 2.00 mg/dL 1.6-2.6 Sadi Marc
--- OUTSIDE RECORDS SUMMARY | 2019-12-06 12:01 | XMS REPORT | Clinical Summary ---
Author Author [facility] Organization [facility] Address Unknown Phone Unavailable Care Team Providers Care Web Offset Press Feeder Name Role Phone Asked, No Pcp PCP [...] (Primary Dx) 03/05/2019 Emergency Emergency Medicine after 12/05/2018 Social History Date Tobacco Use Types Packs/Day [...] Comments Vital Sign 124/78 05/04/2019 5:35 PM [facility] Blood Pressure 90 05/04/2019 5:35 PM [facility] Pulse 36.3 C (97.3 F) 05/04/2019 5:35 PM [facility] Temperature 22 05/04/2019 5:35 PM [facility] Respiratory Rate 98% 05/04/2019 5:35 PM [facility] Oxygen Saturation - - Inhaled Oxygen Concentration 86.2 kg (190 lb) 05/22/2019 9:24 AM [facility] Weight 165.1 cm (5' 5") 05/22/2019 9:24 AM [facility] Height 31.62 05/22/2019 9:24 AM [facility] Body Mass Index Plan of Treatment Health Maintenance Due Date Last Done Comments CERVICAL CANCER SCREENING 2014 INFLUENZA VACCINE 01/26/2020 Procedures Comments Procedure Name Priority Date/Time Associated Diag nosis XR KNEE 4+ VW LEFT Routine 05/22/2019 Acute pain of left knee 9:[address] CERVICAL SPINE WO STAT 05/04/2019 CONTRAST 8:[address] HEAD WO CONTRAST STAT 05/04/2019 8:40 PM [facility] ESTIMATED GFR STAT 05/04/2019 7:50 PM [facility] HCG QUANTITATIVE, SERUM STAT 05/04/2019 7:50 PM [facility] COMPREHENSIVE METABOLIC STAT 05/04/2019 PANEL 7:50 PM [facility] PARTIAL THROMBOPLASTIN STAT 05/04/2019 TIME (PTT) 7:50 PM [facility] PROTHROMBIN TIME WITH INR STAT 05/04/2019 7:50 PM [facility] HC COMPLETE BLD COUNT STAT 05/04/2019 W/AUTO DIFF 7:50 PM [facility] ED REFERRAL TO [facility] Routine 03/05/2019 BUDDHIST PHYSICIAN 10:53 PM CDT ORGANIZATION PARATHYROID HORMONE [...] 03/05/2019 W/AUTO DIFF 5:43 PM CDT after 12/05/2018 Results * XR Knee 4+ Vw Left (05/22/2019 9:29 AM [facility]) Specimen Narrative Performed At [facility] X-rays series [...] the lateral facet region. Performing Organization Address City/State/[facility] Ph one Number [facility] [address] [place] [address] * CT Cervical Spine Wo Contrast (05/04/2019 8:40 PM [facility]) Specimen Narrative Performed At EXAM: CT CERVICAL [...] osseous abnormality of the c ervical spine. [facility]-[id number] Procedure Note Hm Interface, Radiology Results Incoming - 05/04/2019 8:49 PM [facility] EXAM: CT CERVICAL SPINE WO CONTRAST CLINICAL [...] osseous abnormality of the ce rvical spine. [facility]-[id number] Performing Organization Address City/State/Zipcode Ph one Number [facility] [address] [place] [address] * CT Head Wo Contrast (05/04/2019 8:40 PM [facility]) Specimen Narrative Performed At EXAMINATION: CT HEAD [...] IMPRESSION: No acute intracranial abnormality ident ified. [facility]-[id number] Procedure Note Interface, Radiology Results Incoming - 05/04/2019 8:49 PM [facility] EXAMINATION: CT HEAD WO CONTRAST CLINICAL HISTORY: [...] unremarkable. IMPRESSION: No acute intracranial abnormality identified. [facility]-[id number] Performing Organization Address City/State/Zipcode Ph one Number [facility] [address] [place] [address] * Estimated GFR (05/04/2019 7:50 PM [facility]) Only the most recent of 3 results within the time period is included. Pathologist [facility] Estimated GFR >=90 mL/min/1.73 m2 [facility] Comment: BUDDHIST Catergory Units [facility] HOSPITAL G1 >=90 Normal or high G2 [...] 2014. Specimen Plasma specimen Performing Organization Address City/[facility] Ph one Number [facility] [place] [address] [place] [address] PATHOLOGY AND GENOMIC MEDICINE [address] * Partial thromboplastin time, activated (05/04/2019 7:50 PM [facility]) Pathologist [facility] PTT 28.7 23.0 - 36.0 sec [facility] Comment: BUDDHIST PTT therapeutic range for [place] unfractionated heparin is HOSPITAL 61.0-112.0 seconds which corresponds to Anti-Xa 0.3-0.7 U/ml. Specimen Blood Performing Organization Address [facility] Ph one Number [facility] DEPARTMENT OF [address] [place] [address] PATHOLOGY AND [facility] MEDICINE [facility] [address] [place] [address] * Prothrombin time with INR (05/04/2019 7:50 PM [facility]) Pathologist [facility] Prothrombin 12.4 11.5 - 14.5 sec [facility] time [facility] INR 0.95 [facility] Comment: BUDDHIST For patients on anticoagulant [place] therapy, reference ranges HOSPITAL below: Indication: INR Value Treatment of Venous Thrombosis, 2.0-3.0 pulmonary emboli, or prophylaxis of a venous thrombosis, or systemic emboli. High dose, high risk patients 3.0-4.5 with mechanical valves. NOTE: INR values over 3.0 are sometimes associated with gastrointestinal hemorrhage, especially values over 4.0. Specimen Blood Performing Organization Address City/[facility] one Number [facility] DEPARTMENT OF [address] [place] [phone] PATHOLOGY AND GENOMIC MEDICINE [facility] [address] * CBC with platelet and differential (05/04/2019 7:50 PM [facility]) Only the most recent of 2 results within the time period is included. WBC 8.7 4.2 - 11.0 k/uL [facility] RBC 4.73 4.04 - 5.86 m/uL [facility] HGB 13.4 11.5 - 15.3 g/dL [facility] HCT 40.8 34.0 - 45.0 % [facility] MCV 86.3 80.0 - 98.0 fL [facility] MCH 28.3 27.0 - 34.0 pg [facility] MCHC 32.8 31.5 - 36.5 g/dL [facility] RDW - SD 39.1 37.0 - 51.0 fL [facility] MPV 9.8 7.4 - 10.4 fL [facility] Platelet count 392 150 - 400 k/uL [facility] Nucleated RBC 0.00 /100 WBC [facility] Neutrophils 60.7 36.0 - 66.0 % [facility] Lymphocytes 31.4 24.0 - 44.0 % [facility] Monocytes 6.5 (H) 0.0 - 6.0 % [facility] Eosinophils 0.9 0.0 - 6.0 % [facility] Basophils 0.3 0.0 - 1.2 % [facility] Immature 0.2 0.0 - 1.0 % [facility] granulocytes [facility] Specimen Blood Performing Organization Address City/State/Zipcode Ph one Number [facility] DEPARTMENT OF [address] [place] [phone] PATHOLOGY AND GENOMIC MEDICINE [facility] [address] * hCG quantitative, serum (05/04/2019 7:50 PM [facility]) Pathologist [facility] hCG <1 0 - 5 mIU/mL [facility] quantitative, Comment: BUDDHIST serum EXPECTED RANGE: [place] >25 mIU/mL seen in . HOSPITAL For values 1-24: Indeterminate result. Recommend retesting in 72 hours. HCG doubling time for normal is about 2.5 days. Approx Gestational Age Approx. HCG Conc. (mIU/mL) 0-2 weeks 0-500 2-3 weeks 100-1000 3-4 weeks 500-6000 1-3 months 5000-200,000 2nd Trimester 5000-50,000 3rd Trimester 5000-50,000 Specimen Blood Performing Organization Address City/State[facility] Ph one Number [facility] DEPARTMENT OF [address] [place] [address] PATHOLOGY AND GENOMIC MEDICINE [facility] [address] * Comprehensive metabolic panel (05/04/2019 7:50 PM [facility]) Only the most recent of 3 results within the time period is included. Pathologist [facility] Sodium 140 135 - 150 mEq/L [facility] Potassium 4.3 3.5 - 5.0 mEq/L [facility] Chloride 100 98 - 112 mEq/L [facility] CO2 27 24 - 31 mmol/L [facility] Anion gap 13@ANIO 7 - 15 mEq/L [facility] BUN 10 7 - 18 mg/dL [facility] Creatinine 0.70 0.50 - 0.90 mg/dL [facility] Glucose 83 65 - 100 mg/dL [facility] Calcium 9.5 8.3 - 10.2 mg/dL [facility] Protein 7.8 6.3 - 8.3 g/dL [facility] Albumin 4.0 3.5 - 5.0 g/dL [facility] A/G ratio 1.1 0.7 - 3.8 [facility] Alkaline 56 0 - 104 U/L [facility] phosphatase [facility] AST 19 10 - 35 U/L [facility] ALT 5 5 - 50 U/L [facility] Total bilirubin 0.3 0.2 - 1.2 mg/dL [facility] Specimen Plasma specimen Performing Organization Address City/State/Zipcode Ph one Number [facility] DEPARTMENT OF [address] [place] [address] PATHOLOGY AND GENOMIC MEDICINE [facility] [address] [place] [address] HOSPITAL * Parathyroid hormone (03/05/2019 10:11 PM CDT) PTH 36 15 - 65 pg/mL [facility] Specimen Performing Organization Address City/State[facility] Ph one Number [facility] DEPARTMENT OF [address] [place] [address] PATHOLOGY AND GENOMIC MEDICINE [address] * Magnesium level (03/05/2019 10:11 PM CDT) Magnesium 2.00 1.60 - 2.60 mg/dL [facility] Specimen Plasma specimen Performing Organization Address City/State/[facility] Ph one Number [facility] DEPARTMENT OF [address] [place] [address] PATHOLOGY AND GENOMIC MEDICINE [facility] [address] [address] * Ionized calcium (03/05/2019 10:11 PM CDT) pH 7.37 [facility] Ionized calcium 1.12 1.11 - 1.32 mmol/L [facility] Specimen Plasma specimen Performing Organization Address City/State/Zipcode Ph one Number [facility] DEPARTMENT OF [address] [place] [address] PATHOLOGY AND GENOMIC MEDICINE [facility] [address] [place] [address] HOSPITAL after 12/05/2018 Insurance Type Payer Benefit Subscriber ID Effective Phone Address Plan / Dates Group HMO/PPO [facility] xxxxxxxxx 2018-P THCARE resent CHOICE/CHO ICE + Advance Directives For more information, please contact: [phone] Patient Grinder Operator Explanation Type Date Recorded Advance Directives, 03/06/2019 2:45 PM Living Will and Medical Power of Grades 6 Through 8 Teacher Advance Directives, 03/18/2017 4:53 PM Living Will and Medical Power of Grades 6 Through 8 Teacher Advance Directives, 04/20/2017 11:45 PM Living Will and Medical Power of Grades 6 Through 8 Teacher Advance Directives, 01/02/2018 5:13 PM Living Will and Medical Power of Grades 6 Through 8 Teacher Advance Directives, 01/02/2018 5:14 PM Living Will and Medical Power of Grades 6 Through 8 Teacher Advance Directives, 05/04/2019 7:44 PM Living Will and Medical Power of Grades 6 Through 8 Teacher
--- NOTE | 2019-12-06 12:23 | Emergency Department Note ---
History of Present Illnes History of Present Illness Chief Complaint: General Medicine Complaints History of Present Illness This is a 24 year old female PATIENT IN FROM HOME WITH COMPLAINTS OF SORE THROAT SINCE THIS MORNING; RATES PAIN 01/03, STATES IT HURTS TO SWALLOW. 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 Any updates have been documented here. Past Medical History Recent Fever: No Clinical Suspicion of Infectio: No New/Unexplained Change in Ment: No Past Medical History: None Other Medical History: HEPATITIS A Past Surgical History: Other Surgery: X 4 Social History Smoking Cessation: Current some day smoker Counseling Performed: Yes Alcohol Use: Social Any Illegal Drug Use: No TB Exposure/Symptoms: No Physically hurt or threatened: No Family History Family history of heart diseas: No Other Last Tetanus: <5 YEARS Review of Systems Review of Systems Constitutional: Reports no symptoms EENTM: Reports throat pain Cardiovascular: Reports no symptoms Respiratory: Reports no symptoms Gastrointestinal: Reports no symptoms Genitourinary: Reports no symptoms Musculoskeletal: Reports no symptoms Integumentary: Reports no symptoms Neurological: Reports no symptoms Psychological: Reports no symptoms Endocrine: Reports no symptoms Hematological/Lymphatic: Reports no symptoms Physical Exam Related Data Allergies: Coded Allergies: hydrocodone (Verified Allergy, Intermediate, ITCHING, 12/06/19) cephalexin (Verified Allergy, Mild, RASH, 12/06/19) Triage Vital Signs Vital Signs Date Time Temp Pulse Resp B/P (MAP) Pulse Ox O2 Delivery O2 Flow Rate FiO2 12/06/19 12:00 98.4 87 20 137/109 100 Vital signs reviewed: Yes Physical Exam CONSTITUTIONAL Constitutional: Reports well-developed, Reports well-nourished HENT HENT: Reports pharynx abnormal (ERYTHEMATOUS WITH SMALL PETECHIAE ON UPPER HARD PALATE, NO EXUDATE) HENT L/R: Reports left ext ear normal, Reports right ext ear normal EYES Eyes: Reports PERRL, Reports conjunctivae normal NECK Neck: Reports ROM normal PULMONARY Pulmonary: Reports effort normal, Reports breath sounds normal CARDIOVASCULAR Cardiovascular: Reports regular rhythm, Reports heart sounds normal, Reports capillary refill normal, Reports normal rate GASTROINTESTINAL Abdominal: Reports soft, Reports nontender, Reports bowel sounds normal GENITOURINARY Genitourinary: Reports exam deferred SKIN Skin: Reports warm, Reports dry; Denies rash MUSCULOSKELETAL Musculoskeletal: Reports ROM normal NEUROLOGICAL Neurological: Reports alert, Reports oriented x 3, Reports no gross motor or sensory deficits PSYCHOLOGICAL Psychological: Reports mood/affect normal, Reports judgement normal Assessment & Plan Medical Decision Making MDM TREAT FOR STREP, HOME Reassessment Reassessment DC HOME WITH AMOXIL 500 TID X 10 DAYS Assessment & Plan Final Impression: (1) Pharyngitis Depart Disposition: HOME, SELF-CARE Last Vital Signs Date Time Temp Pulse Resp B/P (MAP) Pulse Ox O2 Delivery O2 Flow Rate FiO2 12/06/19 12:00 98.4 87 20 137/109 100 Home Meds Active Scripts Methocarbamol (ROBAXIN-750) 750 Mg Tablet, 750 MG PO Q8HR PRN for MUSCLE SPASMS, #14 Prov:PATSY NARVAEZ, DO 11/19/19 Reported Medications Vit #108/Iron/Fa ( ONE TABLET) 1 Each Tablet, 1 TAB PO DAILY 03/26/16 DAPHNE BOLANOS MD Dec 06, 2019 12:23
--- NOTE | 2019-12-10 11:27 | Progress Note ---
DATE: SUBJECTIVE: The patient is seen and evaluated. Available labs and notes reviewed. Discussed with Dr. Luz. Please refer to chart for more information. REVIEW OF SYSTEMS: No nausea, vomiting, fever, chills, chest pain, shortness of breath, headache, rash, dysuria, and the patient is anxious to go home. PHYSICAL EXAMINATION: VITAL SIGNS: Temperature 98.3, pulse 72, respiration 19, blood pressure 174/55. GENERAL: Alert and oriented, no acute distress, very pleasant. CV: S1, S2. CHEST: Equal expansion. Clear to auscultation. No acute distress. HEENT: Moist. No pallor. No JVD. EXTREMITIES: Moves all. No edema. MEDICATIONS: Medication list reviewed. From Infectious Disease point of view, the patient is on Rocephin and vancomycin IV. LABORATORY STUDIES: White count of 5.18, hemoglobin 10.7, platelet 111. Sodium 140, potassium 3.7, creatinine 1.09. TOXICOLOGY: Vancomycin peak is 30. SEROLOGY: No new serology available. MICROBIOLOGY: Blood culture reviewed. Recheck blood cultures negative. Previous blood culture was Enterococcus, not VRE. IMAGING: No new radiology studies available. The patient is status post PICC line placement. ASSESSMENT AND PLAN: 1. Enterococcus faecalis bacteremia, not vancomycin-resistant enterococci. Echo possibly today. The patient remains on vancomycin IV and Rocephin status post PICC line. Await BUTCH. 2. Hypertension. 3. Coronary artery disease. 4. Atrial fibrillation. 5. Chronic kidney disease. Creatinine improved from 1.38 down to 1.09. Continue to monitor. Vancomycin peak as mentioned above. 6. Continue to monitor the patient clinically. Follow with the labs. Please refer to chart for more information. Discussed with Dr. Luz in detail. Dictated by Yordy Hastings PA-C (Al) Milka Luz MD /MODL /[id number]
== END 2019-12-06 12:23 | disposition home or self-care (01) ==
LOC: ER 11:57
DX: J02.9 Acute pharyngitis, unspecified (principal); B15.9 Hepatitis A without hepatic coma; F17.210 Nicotine dependence, cigarettes, uncomplicated
CPT/HCPCS: 99283

== ENCOUNTER 2020-01-09 12:58 | Emergency (ER) | payer SELFPAY ==
[~2020-01-09] VITALS: Ht 165.1 cm; Wt 86.2 kg
--- NOTE | 2020-01-09 14:04 | Emergency Department Note ---
History of Present Illnes History of Present Illness Chief Complaint: General Medicine Complaints History of Present Illness This is a 24 year old female c/o sores in mouth started 2 days ago. 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 Any updates have been documented here. Past Medical History Recent Fever: No Clinical Suspicion of Infectio: No New/Unexplained Change in Ment: No Past Medical History: None Other Medical History: HEPATITIS A Past Surgical History: Other Surgery: X 4 Social History Smoking Cessation: Never Smoker Counseling Performed: No Alcohol Use: Social Any Illegal Drug Use: No TB Exposure/Symptoms: No Physically hurt or threatened: No Family History Family history of heart diseas: No Other Last Tetanus: <5 YEARS Review of Systems Review of Systems Constitutional: Reports no symptoms EENTM: Reports as per HPI Cardiovascular: Reports no symptoms Respiratory: Reports no symptoms Gastrointestinal: Reports no symptoms Genitourinary: Reports no symptoms Musculoskeletal: Reports no symptoms Integumentary: Reports no symptoms Neurological: Reports no symptoms Psychological: Reports no symptoms Endocrine: Reports no symptoms Hematological/Lymphatic: Reports no symptoms Physical Exam Related Data Allergies: Coded Allergies: hydrocodone (Verified Allergy, Intermediate, ITCHING, 12/06/19) cephalexin (Verified Allergy, Mild, RASH, 12/06/19) Triage Vital Signs Vital Signs Date Time Temp Pulse Resp B/P (MAP) Pulse Ox O2 Delivery O2 Flow Rate FiO2 01/09/20 13:51 98.8 66 18 119/84 100 Room Air Vital signs reviewed: Yes Physical Exam CONSTITUTIONAL Constitutional: Present well-developed, Present well-nourished HENT HENT: Present normocephalic, Present atraumatic, Present oropharynx clear/moist, Present nose normal, Present other (aphthous ulcers on left side of upper and lower lip) HENT L/R: Present left ext ear normal, Present right ext ear normal EYES Eyes: Reports PERRL, Reports conjunctivae normal NECK Neck: Present ROM normal PULMONARY Pulmonary: Present effort normal, Present breath sounds normal CARDIOVASCULAR Cardiovascular: Present regular rhythm, Present heart sounds normal, Present capillary refill normal, Present normal rate GASTROINTESTINAL Abdominal: Present soft, Present nontender, Present bowel sounds normal GENITOURINARY Genitourinary: Present exam deferred SKIN Skin: Present warm, Present dry MUSCULOSKELETAL Musculoskeletal: Present ROM normal NEUROLOGICAL Neurological: Present alert, Present oriented x 3, Present no gross motor or s ensory deficits PSYCHOLOGICAL Psychological: Present mood/affect normal, Present judgement normal Assessment & Plan Medical Decision Making MDM no labs needed Reassessment Reassessment dc, valtrex 1 gm tid x 7 days Assessment & Plan Final Impression: (1) Herpetiform aphthous ulceration Depart Disposition: HOME, SELF-CARE Last Vital Signs Date Time Temp Pulse Resp B/P (MAP) Pulse Ox O2 Delivery O2 Flow Rate FiO2 01/09/20 13:51 98.8 66 18 119/84 100 Room Air Home Meds Active Scripts Methocarbamol (ROBAXIN-750) 750 Mg Tablet, 750 MG PO Q8HR PRN for MUSCLE SPASMS, #14 Prov:PATSY NARVAEZ DO 11/19/19 Reported Medications Vit #108/Iron/Fa ( ONE TABLET) 1 Each Tablet, 1 TAB PO DAILY 03/26/16 DAPHNE BOLANOS MD Jan 09, 2020 14:04
== END 2020-01-09 13:57 | disposition home or self-care (01) ==
LOC: ER 13:52
DX: K12.0 Recurrent oral aphthae (principal); B15.9 Hepatitis A without hepatic coma
CPT/HCPCS: 99282

== ENCOUNTER 2020-08-11 23:59 | Emergency (ER) | payer SELFPAY ==
[~2020-08-11] VITALS: Ht 165.1 cm; Wt 86.2 kg
== END 2020-08-12 01:00 | disposition home or self-care (01) ==
LOC: ER 08-12 00:03
DX: T24.211A Burn of second degree of right thigh, initial encounter (principal); X12.XXXA Contact with other hot fluids, initial encounter; Y92.008 Other place in unspecified non-institutional (private) residence as the place of occurrence of the external cause; B15.9 Hepatitis A without hepatic coma
CPT/HCPCS: 99282

== ENCOUNTER 2020-10-28 18:45 | Emergency (ER) | payer SELFPAY ==
[~2020-10-28] VITALS: Ht 165.1 cm; Wt 88.0 kg
== END 2020-10-29 02:19 | disposition left against medical advice (07) ==
LOC: ER 19:18
DX: M54.9 Dorsalgia, unspecified (principal)

== ENCOUNTER 2022-01-28 17:10 | Emergency (ER) | payer SELFPAY ==
[~2022-01-28] VITALS: Ht 165.1 cm; Wt 88.0 kg
[2022-01-28] MEDS ORDERED: DOXYCYCLINE HYCLATE TABLET 100 MG TAB PO ONE (18:00)
[2022-01-28 18:57] LABS: CLARITY,URINE CLEAR (CLEAR); COLOR,URINE YELLOW (YELLOW); KETONES,URINE NEGATIVE (NEGATIVE); LEUKOCYTE ESTERASE ,URINE TRACE (NEGATIVE); NITRITE,URINE NEGATIVE (NEGATIVE); PROTEIN,URINE DIPSTICK NEGATIVE (NEGATIVE); URINE UROBILINOGEN 0.2 mg/dL (0.2 - 1)
[2022-01-28] MEDS ORDERED: ONDANSETRON HCL 4 MG ORAL DISINTEGRATING TAB PO ONE (19:00)
[2022-01-28] MEDS ORDERED: CEFTRIAXONE 500 MG VIAL IM ONE (19:00)
[2022-01-28 19:08] LABS: AMORPHOUS SEDIMENT,URINE MODERATE (FEW); BACTERIA,URINE MODERATE /HPF; EPITHELIAL CELLS,URINE MODERATE /LPF; TRANSITIONAL EPI CELLS,URINE FEW
[2022-01-28] MEDS ORDERED: LIDOCAINE HCL 1% 2 ML AMP ONE (19:21)
== END 2022-01-28 19:39 | disposition home or self-care (01) ==
LOC: ER 17:56
DX: R30.0 Dysuria (principal); A64 Unspecified sexually transmitted disease; B15.9 Hepatitis A without hepatic coma
CPT/HCPCS: 81001; 81025; 87491; 87591; 99283; J0696; J2001; Q0162